=== PATIENT | female | born 1975 | race Caucasian/White ===

== ENCOUNTER 2017-01-13 01:47 | Inpatient (IN) | payer MEDICAID, OTHER ==
[~2017-01-13] VITALS: Ht 177.8 cm; Wt 101.0 kg
[2017-01-13] VITALS (10 sets, daily range): BP systolic 105–148; BP diastolic 61–97; PULSE 68–98; RESP 18–24; TEMP 97.7–98.4; O2SAT 94–98
[~2017-01-13 01:47] MED LIST: ALBU6.7H INH; CIPR500T4 PO; HYDR-3533 PO; IBUP800T23 PO; PROM25SU8 PO
[2017-01-13] MEDS ORDERED: MORP1TAB25 PO (01:58)
[2017-01-13] MEDS ORDERED: MORPHINE SULFATE 4 MG/ML INJ IV ONE (02:00)
[2017-01-13] MEDS ORDERED: ONDANSETRON HCL 4 MG/2 ML VIAL IVP ONE (02:00)
[2017-01-13] MEDS ORDERED: LORazepam 2 MG/ML VIAL IV PUSH ONE (02:15)
[2017-01-13 02:23] LABS: AUTOMATED NEUTROPHIL # 12.7 TH/MM3 (1.8-7.7); BASOPHIL # 0.1 TH/MM3 (0-0.2); BASOPHIL % 0.5 % (0.0-2.0); EOSINOPHIL # 0.2 TH/MM3 (0-0.4); EOSINOPHIL % 1.3 % (0.0-4.0); HEMATOCRIT 40.1 % (35.0-46.0); HEMO FLAGS DIFF FINAL; LYMPH % 24.5 % (9.0-44.0); LYMPHOCYTE # 4.4 TH/MM3 (1.0-4.8); MEAN CELL VOLUME 82.2 FL (80.0-100.0); MEAN CORPUSCULAR HEMOGLOBIN 26.9 PG (27.0-34.0); MEAN CORPUSCULAR HGB CONC 32.7 % (32.0-36.0); NEUT % 70.7 % (16.0-70.0); PLATELET COUNT 214 TH/MM3 (150-450); RED BLOOD COUNT 4.88 MIL/MM3 (4.00-5.30); RED CELL DISTRIBUTION WIDTH 13.5 % (11.6-17.2); WHITE BLOOD COUNT 17.9 TH/MM3 (4.0-11.0)
[2017-01-13 02:35] LABS: APTT (PATIENT) 23.6 SEC (24.3-30.1); PROTHROMBIN TIME - PATIENT 10.7 SEC (9.8-11.6)
[2017-01-13 02:38] LABS: I-STAT SODIUM 141 MMOL/L (138-146)
[2017-01-13] MEDS ORDERED: IOHEXOL 350 MG/ML 10 ML VIAL (for RAD DIAG) IV ONE (02:59)
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
[2017-01-13] MEDS ORDERED: SODIUM CHLOR 0.9% 1000 ML INJ 1,000 ML IV SCH (04:10)
[2017-01-13] MEDS ORDERED: MORPHINE SULFATE 4 MG/ML INJ IV PRN (04:15)
[2017-01-13] MEDS ORDERED: ENALAPRILAT 1.25 MG/ML VIAL IV PRN (04:15)
[2017-01-13] MEDS ORDERED: ACETAMINOPHEN/HYDROcodone 325 MG/5 MG TAB PO PRN ×2 (04:15)
[2017-01-13] MEDS ORDERED: SODIUM CHLORIDE 0.9% FLUSH 10 ML FLUSH IV FLUSH PRN (04:15)
[2017-01-13] MEDS ORDERED: MAGNESIUM HYDROXIDE SUSP 30 ML CUP PO PRN (04:15)
[2017-01-13] MEDS ORDERED: ONDANSETRON HCL 4 MG/2 ML VIAL IV PRN (04:15)
[2017-01-13] MEDS: HYDROmorphone HCL PF 1 MG/ML VIAL IV PUSH PRN ×5 (05:03→20:38)
[2017-01-13] MEDS ORDERED: PANTOPRAZOLE SODIUM 40 MG VIAL IVP SCH (06:00)
[2017-01-13] MEDS: CYCLOBENZAPRINE HCL 10 MG TAB PO SCH ×3 (06:01→20:38)
[2017-01-13] MEDS: POLYETHYLENE GLYCOL 17 GM PKG PO SCH (08:18)
[2017-01-13] MEDS ORDERED: ACETAMINOPHEN 1000 MG/100 ML VIAL IV ONE (09:00)
[2017-01-13] MEDS ORDERED: DOCUSATE SODIUM 100 MG CAP PO SCH (09:00)
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
[2017-01-13 10:37] LABS: BLOOD, URINE TRACE (NEG); GLUCOSE,URINE NEG (NEG); KETONE, URINE NEG (NEG); NITRITE,URINE NEG (NEG); SQUAMOUS EPITHELIAL CELL URINE <1 /hpf (0-5); URINE COLOR YELLOW (YELLW/STRAW)
[2017-01-13 10:41] LABS: COMMENT (UR) CULT NOT INDICATED; CULTURE IF INDICATED CULT NOT INDICATED
[2017-01-13 10:50] LABS: AMPHETAMINE, URINE NEG (NEG); BARBITURATES, URINE NEG (NEG); COCAINE, URINE NEG (NEG)
[2017-01-13] MEDS ORDERED: oxyCODONE/ACETAMINOPHEN 5 MG/325 MG TAB PO PRN (11:15)
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
--- NOTE | 2017-01-13 14:33 | EC ---
Study Study Date:01/13/2017 STUDY CONCLUSIONS SUMMARY LEFT VENTRICLE: The cavity size was normal. Wall thickness was normal. Systolic function was vigorous. The estimated ejection fraction was in the range of 65% to 70%. Wall motion was normal; there were no regional wall motion abnormalities. If LV function is below 40, please consider prescribing an ACEI or ARB or document rationale for non-use. PROCEDURE DATA STUDY STATUS: Elective. Procedure: Transthoracic echocardiography. Image quality was good. Scanning was performed from the parasternal, apical, and subcostal acoustic windows. Study completion: The patient tolerated the procedure well. Transthoracic echocardiography. M-mode, complete 2D, complete spectral Doppler, and color Doppler. Patient status: Inpatient. CARDIAC ANATOMY LEFT VENTRICLE: The cavity size was normal. Wall thickness was normal. Systolic function was vigorous. The estimated ejection fraction was in the range of 65% to 70%. Wall motion was normal; there were no regional wall motion abnormalities. AORTIC VALVE: Trileaflet; normal thickness leaflets. Doppler: Transvalvular velocity was within the normal range. There was no stenosis. No regurgitation. AORTA: Aortic root: The aortic root was normal in size. MITRAL VALVE: Structurally normal valve. Doppler: Transvalvular velocity was within the normal range. There was no evidence for stenosis. Trace regurgitation. Peak gradient: 2mm Hg (D). LEFT ATRIUM: The atrium was normal in size. RIGHT VENTRICLE: The cavity size was normal. Wall thickness was normal. PULMONIC VALVE: Doppler: Transvalvular velocity was within the normal range. There was no evidence for stenosis. No regurgitation. TRICUSPID VALVE: Structurally normal valve. Doppler: Transvalvular velocity was within the normal range. Trace regurgitation. PULMONARY ARTERY: The main pulmonary artery was normal-sized. Systolic pressure was within the normal range. RIGHT ATRIUM: The atrium was normal in size. PERICARDIUM: There was no pericardial effusion. SYSTEMIC VEINS: Inferior vena cava: The vessel was normal in size. BASIC MEASUREMENTS ADULT NORMAL Left ventricle LV internal dimension, ED, chordal level, 44 mm 43-52 PLAX LV internal dimension, ES, chordal level, 30 mm 23-38 PLAX Fractional shortening, chordal level, PLAX 32 % >29 LV posterior wall thickness, ED 9.95 mm IVS/LVPW ratio, ED 1.23 <1.3 Ventricular septum Septal thickness, ED 12.2 mm Aortic valve Leaflet separation 21 mm 15-26 Right ventricle RV internal dimension, ED, PLAX 33.3 mm 19-38 BASIC MEASUREMENTS ADULT NORMAL Aortic valve Leaflet separation 21 mm 15-26 Aorta Root diameter, ED 29 mm 20-37 Left atrium Anterior-posterior dimension, ES 32 mm 19-40 LA/aortic root ratio 1.1 DOPPLER MEASUREMENTS ADULT NORMAL Mitral valve Peak E-wave velocity 74 cm/s Peak A-wave velocity 58.7 cm/s Peak gradient, D 2 mm Hg Peak E/A ratio 1.3 LEGEND: Mean values are shown as u=mean value. Asterisk (*) de paz values outside specified normal range. Prepared and signed by Aman Snyder [id number]
[2017-01-13] MEDS: oxyCODONE/ACETAMINOPHEN 5 MG/325 MG TAB PO PRN ×3 (15:03→23:48)
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
[2017-01-13] MEDS: DOCUSATE SODIUM 50 MG/SENNA 8.6 MG TAB PO SCH (19:35)
[2017-01-14] VITALS (7 sets, daily range): BP systolic 112–135; BP diastolic 72–92; PULSE 64–96; RESP 14–20; TEMP 97.9–98.3; O2SAT 93–97
[2017-01-14] MEDS: KETOROLAC TROMETHAMINE 30 MG/ML (IVP) VIAL IV PUSH PRN ×3 (00:04→12:55)
[2017-01-14] MEDS: HYDROmorphone HCL PF 1 MG/ML VIAL IV PUSH PRN ×7 (00:42→23:40)
[2017-01-14] MEDS: SODIUM CHLORIDE 0.9% FLUSH 10 ML FLUSH IVF PRN ×3 (00:42→06:18)
[2017-01-14] MEDS: oxyCODONE/ACETAMINOPHEN 5 MG/325 MG TAB PO PRN ×2 (03:56→08:29)
[2017-01-14] MEDS: CYCLOBENZAPRINE HCL 10 MG TAB PO SCH ×3 (05:11→20:54)
[2017-01-14] MEDS: DOCUSATE SODIUM 50 MG/SENNA 8.6 MG TAB PO SCH ×2 (08:26→19:32)
[2017-01-14] MEDS: FAMOTIDINE 20 MG TAB PO SCH ×2 (08:26→19:31)
[2017-01-14] MEDS: POLYETHYLENE GLYCOL 17 GM PKG PO SCH (08:26)
[2017-01-14] MEDS ORDERED: DIAZEPAM 5 MG TAB PO ONE (10:45)
[2017-01-14] MEDS ORDERED: RESP: ALBUTEROL 2.5 MG/IPRATROPIUM 0.5 MG NEB (PRN) NEB (11:15)
[2017-01-14] MEDS: ENOXAPARIN SODIUM 30 MG/0.3 ML SYRINGE SQ SCH ×2 (11:55→23:40)
--- NOTE | 2017-01-14 12:33 | RADRPT ---
EXAM DATE/TIME: 01/14/2017 11:06 [facility] COMPARISON: CHEST SINGLE AP, June 04, 2016, 23:49. INDICATIONS : Chest pain. MEDICAL HISTORY : Hypertension. SURGICAL HISTORY : Appendectomy. Cholecystectomy.Umbilical hernia repair.Hysterectomy ENCOUNTER: Initial ACUITY: 1 day PAIN SCORE: 8/10 LOCATION: Bilateral chest FINDINGS: Single AP view of the chest. Low lung volumes. Bilateral pulmonary vasculature indistinctness and haz y opacity suggesting mild pulmonary edema. Small bilateral pleural effusions. No evidence of pneumoth orax. Cardiac silhouette mildly prominent. CONCLUSION: Low lung volumes. Mild bilateral pulmonary opacity and pulmonary vasculature indistinctness indicatin g mild pulmonary edema. Small bilateral pleural effusions. Diomedes Acosta MD on January 14, 2017 at 12:28 Board Certified Radiologist. This report was verified electronically.
[2017-01-14 13:39] LABS: AUTOMATED NEUTROPHIL # 4.3 TH/MM3 (1.8-7.7); BASOPHIL % 0.3 % (0.0-2.0); EOSINOPHIL # 0.2 TH/MM3 (0-0.4); EOSINOPHIL % 2.6 % (0.0-4.0); HEMATOCRIT 34.1 % (35.0-46.0); HEMO FLAGS DIFF FINAL; LYMPH % 32.7 % (9.0-44.0); LYMPHOCYTE # 2.4 TH/MM3 (1.0-4.8); MEAN CELL VOLUME 81.3 FL (80.0-100.0); MEAN CORPUSCULAR HEMOGLOBIN 27.4 PG (27.0-34.0); MEAN CORPUSCULAR HGB CONC 33.7 % (32.0-36.0); NEUT % 58.4 % (16.0-70.0); PLATELET COUNT 144 TH/MM3 (150-450); RED CELL DISTRIBUTION WIDTH 13.5 % (11.6-17.2); WHITE BLOOD COUNT 7.3 TH/MM3 (4.0-11.0)
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
[2017-01-14 13:56] LABS: ALT (GPT) 92 U/L (10-53); ANION GAP 5 MEQ/L (5-15); AST (GOT) 64 U/L (15-37); BICARBONATE 28.9 MEQ/L (21.0-32.0); BLOOD UREA NITROGEN 8 MG/DL (7-18); CHLORIDE 105 MEQ/L (98-107); GLOMERULAR FILTRATION RATE 97 ML/MIN (>89); POTASSIUM 3.8 MEQ/L (3.5-5.1); SODIUM (NA) 139 MEQ/L (136-145)
[2017-01-14 13:58] LABS: ALKALINE PHOSPHATASE 77 U/L (45-117); TOTAL BILIRUBIN ADULT 0.5 MG/DL (0.2-1.0)
[2017-01-14] MEDS: RESP: ALBUTEROL 2.5 MG/IPRATROPIUM 0.5 MG NEB (SCH) NEB ×2 (14:00→19:38)
[2017-01-14] MEDS ORDERED: ACETAMINOPHEN 1000 MG/100 ML VIAL IV PRN (14:00)
[2017-01-14] MEDS: oxyCODONE HCL 10 MG CONTROLLED RELEASE TAB PO PRN ×3 (16:13→22:26)
[2017-01-14] MEDS: KETOROLAC TROMETHAMINE 30 MG/ML (IVP) VIAL IV PUSH SCH ×2 (17:41→23:40)
[2017-01-14] MEDS: DIAZEPAM 2 MG TAB PO SCH (17:41)
[2017-01-15] VITALS (7 sets, daily range): BP systolic 115–131; BP diastolic 59–86; PULSE 80–108; RESP 16–20; TEMP 97.6–98.3; O2SAT 93–99
[2017-01-15] MEDS: oxyCODONE HCL 10 MG CONTROLLED RELEASE TAB PO PRN ×3 (01:20→15:00)
[2017-01-15] MEDS: HYDROmorphone HCL PF 1 MG/ML VIAL IV PUSH PRN ×6 (02:30→21:31)
[2017-01-15] MEDS: DIAZEPAM 2 MG TAB PO SCH ×2 (02:30→10:45)
[2017-01-15] MEDS: KETOROLAC TROMETHAMINE 30 MG/ML (IVP) VIAL IV PUSH SCH ×2 (05:30→11:34)
[2017-01-15] MEDS: CYCLOBENZAPRINE HCL 10 MG TAB PO SCH (05:30)
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
[2017-01-15] MEDS: RESP: ALBUTEROL 2.5 MG/IPRATROPIUM 0.5 MG NEB (SCH) NEB (07:40)
[2017-01-15] MEDS: FAMOTIDINE 20 MG TAB PO SCH ×2 (09:07→19:18)
[2017-01-15] MEDS: DOCUSATE SODIUM 50 MG/SENNA 8.6 MG TAB PO SCH ×2 (09:07→19:18)
[2017-01-15] MEDS: POLYETHYLENE GLYCOL 17 GM PKG PO SCH (09:08)
[2017-01-15] MEDS: ENOXAPARIN SODIUM 30 MG/0.3 ML SYRINGE SQ SCH ×2 (11:35→23:45)
[2017-01-15] MEDS: IBUPROFEN 800 MG TAB PO SCH ×2 (13:24→21:31)
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
[2017-01-15] MEDS: LACTULOSE SYRUP 20 GM/30 ML CUP PO SCH (16:00)
[2017-01-15] MEDS: DIAZEPAM 5 MG TAB PO SCH (19:18)
[2017-01-15] MEDS ORDERED: HYDROmorphone HCL 2 MG TAB PO PRN (20:00)
[2017-01-15] MEDS: HYDROmorphone HCL 4 MG TAB PO PRN (23:45)
[2017-01-16] VITALS (7 sets, daily range): BP systolic 106–125; BP diastolic 55–79; PULSE 76–89; RESP 16–20; TEMP 97.1–98.3; O2SAT 96–98
[2017-01-16] MEDS: HYDROmorphone HCL PF 1 MG/ML VIAL IV PUSH PRN ×6 (01:53→22:30)
[2017-01-16] MEDS: DIAZEPAM 5 MG TAB PO SCH ×3 (03:47→20:28)
[2017-01-16] MEDS: HYDROmorphone HCL 4 MG TAB PO PRN ×5 (03:47→20:28)
[2017-01-16] MEDS: IBUPROFEN 800 MG TAB PO SCH ×3 (05:51→22:31)
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
[2017-01-16] MEDS: FAMOTIDINE 20 MG TAB PO SCH ×2 (08:21→20:28)
[2017-01-16] MEDS: LACTULOSE SYRUP 20 GM/30 ML CUP PO SCH (08:22)
[2017-01-16] MEDS: DOCUSATE SODIUM 50 MG/SENNA 8.6 MG TAB PO SCH ×2 (08:22→20:28)
[2017-01-16] MEDS: POLYETHYLENE GLYCOL 17 GM PKG PO SCH (08:26)
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
[2017-01-16] MEDS ORDERED: IOHEXOL 350 MG/ML 10 ML VIAL (for RAD DIAG) IV ONE (12:34)
--- NOTE | 2017-01-16 12:39 | RADRPT ---
EXAM DATE/TIME: 01/16/2017 12:20 [facility] COMPARISON: CHEST SINGLE AP, January 16, 2017, 5:55. CT ABDOMEN & PELVIS W CONTRAST, January 13, 2017, 2:42. INDICATIONS : Shortness of breath and chest pain. IV CONTRAST: 71 cc Omnipaque 350 (iohexol) IV RADIATION DOSE: 22.90 CTDIvol (mGy) MEDICAL HISTORY : Seizures. Hypertension. SURGICAL HISTORY : Appendectomy. Hysterectomy.Cholecystectomy.Hernia repair ENCOUNTER: Initial ACUITY: 3 days PAIN SCALE: 6/10 LOCATION: Bilateral chest TECHNIQUE: Volumetric scanning of the chest was performed using a pulmonary embolism protocol MIP images were re constructed. Using automated exposure control and adjustment of the mA and/or kV according to patien t size, radiation dose was kept as low as reasonably achievable to obtain optimal diagnostic quality images. FINDINGS: The examination is of good diagnostic quality. The thoracic aorta is intact. No pulmonary embolus is identified. No significant hilar or mediastinal adenopathy is seen. The exam demonstrates a small right-sided pneumothorax. There are small bilateral effusions and conso lidative changes within the lower lobes. There is visualization of the osseous structures. These demonstrate comminuted fractures of the right fourth, fifth and sixth lateral ribs. CONCLUSION: 1. No pulmonary embolus identified. 2. Small right-sided pneumothorax. 3. Bilateral effusions with consolidative changes in the lung bases. 4. Fracture of the right fourth, fifth and sixth lateral ribs. Emanuel Espinoza MD on January 16, 2017 at 12:34 Board Certified Radiologist. This report was verified electronically.
[2017-01-16] MEDS: ENOXAPARIN SODIUM 30 MG/0.3 ML SYRINGE SQ SCH (12:44)
[2017-01-17] VITALS (7 sets, daily range): BP systolic 106–125; BP diastolic 55–82; PULSE 75–99; RESP 16–20; TEMP 97.2–98.1; O2SAT 93–100
[2017-01-17] MEDS: FAMOTIDINE 20 MG TAB PO SCH ×3 (00:33→20:28)
[2017-01-17] MEDS: HYDROmorphone HCL 4 MG TAB PO PRN ×6 (00:33→20:28)
[2017-01-17] MEDS: ENOXAPARIN SODIUM 30 MG/0.3 ML SYRINGE SQ SCH ×3 (00:34→22:47)
[2017-01-17] MEDS: HYDROmorphone HCL PF 1 MG/ML VIAL IV PUSH PRN ×5 (02:40→22:46)
[2017-01-17] MEDS: DIAZEPAM 5 MG TAB PO SCH ×3 (04:33→20:28)
[2017-01-17] MEDS: IBUPROFEN 800 MG TAB PO SCH ×3 (05:41→21:11)
[2017-01-17] MEDS: POLYETHYLENE GLYCOL 17 GM PKG PO SCH (08:16)
[2017-01-17] MEDS: LACTULOSE SYRUP 20 GM/30 ML CUP PO SCH (08:16)
[2017-01-17] MEDS: DOCUSATE SODIUM 50 MG/SENNA 8.6 MG TAB PO SCH ×2 (08:16→20:28)
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
[2017-01-18] VITALS: BP 118/66; PULSE 89; RESP 18; TEMP 98.2; O2SAT 96
[2017-01-18] MEDS: HYDROmorphone HCL 4 MG TAB PO PRN ×4 (00:25→11:06)
[2017-01-18] MEDS: DIAZEPAM 5 MG TAB PO SCH (03:10)
[2017-01-18 04:00] VITALS: BP 123/69; PULSE 81; RESP 16; TEMP 98.3; O2SAT 94
[2017-01-18] MEDS: IBUPROFEN 800 MG TAB PO SCH (05:28)
--- NOTE | 2017-01-18 06:08 | RADRPT ---
EXAM DATE/TIME: 01/18/2017 05:11 [facility] COMPARISON: CHEST SINGLE AP, January 16, 2017, 5:55. INDICATIONS : Shortness of breath, possible pulmonary disease. MEDICAL HISTORY : Hypertension. SURGICAL HISTORY : Appendectomy. Cholecystectomy. Umbilical hernia repair. ENCOUNTER: Subsequent ACUITY: 1 week PAIN SCORE: 5/10 LOCATION: Bilateral chest FINDINGS: A single view of the chest demonstrates multiple right-sided rib fractures. Small left pleural effusi on. Better aerated chest on the previous study. No visible pneumothorax. The cardiomediastinal conto urs are unremarkable. CONCLUSION: Numerous right-sided rib fractures. No visible pneumothorax. Small left pleural effusion Chaim Kingston MD on January 18, 2017 at 6:06 Board Certified Radiologist. This report was verified electronically.
[2017-01-18 08:00] VITALS: BP 105/65; PULSE 75; PULSE 77; RESP 18; TEMP 97.8; O2SAT 95
[2017-01-18] MEDS ORDERED: IBUP800T23 PO (08:22)
[2017-01-18] MEDS: HYDROmorphone HCL PF 1 MG/ML VIAL IV PUSH PRN (09:28)
[2017-01-18] MEDS: FAMOTIDINE 20 MG TAB PO SCH (09:29)
[2017-01-18] MEDS: DOCUSATE SODIUM 50 MG/SENNA 8.6 MG TAB PO SCH (09:29)
[2017-01-18] MEDS: POLYETHYLENE GLYCOL 17 GM PKG PO SCH (09:31)
[2017-01-18] MEDS: LACTULOSE SYRUP 20 GM/30 ML CUP PO SCH (09:31)
[2017-01-18] MEDS ORDERED: DILA2TAB2 PO (09:46)
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
== END 2017-01-18 11:27 | disposition home or self-care (01) | DRG 200 ==
LOC: NEPC 01:47 → NEDA 03:57 → OBSVTOIN 04:12 → N04A 05:44
PROVIDERS: ADMIT Surgery; ATTEND Surgery
DX: S27.0XXA Traumatic pneumothorax, initial encounter (principal); S22.43XA Multiple fractures of ribs, bilateral, initial encounter for closed fracture; J90 Pleural effusion, not elsewhere classified; S20.212A Contusion of left front wall of thorax, initial encounter; V49.49XA Driver injured in collision with other motor vehicles in traffic accident, initial encounter; Y92.410 Unspecified street and highway as the place of occurrence of the external cause; G89.29 Other chronic pain; M54.5 Low back pain; Z79.891 Long term (current) use of opiate analgesic; I10 Essential (primary) hypertension; Z85.41 Personal history of malignant neoplasm of cervix uteri; Z92.21 Personal history of antineoplastic chemotherapy; F17.210 Nicotine dependence, cigarettes, uncomplicated
CPT/HCPCS: 70450; 71010; 71020; 71260; 71275; 72125; 74177; 76937; 80053; 80307; 81001; 82435; 82565; 82947; 84132; 84295; 84520; 85025; 85610; 85730; 86850; 86900; 86901; 93306; 94150; 94640; 94664; 96374; 96375; C9113; J0131; J1170; J1650; J1885; J2060; J2270; J2405; J7030; Q9967

== ENCOUNTER 2017-04-11 18:27 | Emergency (ER) | payer SELFPAY ==
[~2017-04-11] VITALS: Ht 177.8 cm; Wt 95.0 kg
[~2017-04-11 18:27] MED LIST changes: -ALBU6.7H INH; -CIPR500T4 PO; +DILA2TAB2 PO; -HYDR-3533 PO; +MORP1TAB25 PO; -PROM25SU8 PO
[2017-04-11 18:29] VITALS: BP 138/82; PULSE 88; RESP 16; TEMP 98.5; O2SAT 96
--- NOTE | 2017-04-11 18:41 | PD ---
Physical Exam Date Seen by Provider: Apr 11, 2017 Time Seen by Provider: 18:40 Narrative 41 yo female here for possible PVCs. History of this in the past. Bad pains when they come. Per patient it comes when her potassium is low. Vitals stable in triage. Awaiting bed placement Data Data Last Documented VS Vital Signs Date Time Temp Pulse Resp B/P (MAP) Pulse Ox O2 Delivery O2 Flow Rate FiO2 04/11/17 18:29 98.5 88 16 138/82 (100) 96 MDM Medical Record Reviewed: Yes Supervised Visit with BARRY: Chi Priest Apr 11, 2017 18:41
--- NOTE | 2017-04-12 17:49 | EKG ---
Date Performed: 04/11/2017 Time Performed: 18:52:52 PTAGE: 41 years EKG: Sinus rhythm NORMAL ECG Compared to prior tracing no significant change PREVIOUS TRACING : 12/28/2014 22.08 DOCTOR: David Jolley Interpretating Date/Time 04/12/2017 17:48:38
== END 2017-04-11 21:25 | disposition left against medical advice (07) ==
LOC: NED 18:27
DX: R52 Pain, unspecified (principal); Z53.21 Procedure and treatment not carried out due to patient leaving prior to being seen by health care provider
CPT/HCPCS: 93005; 99281

== ENCOUNTER 2017-05-01 22:30 | Emergency (ER) | payer SELFPAY ==
[2017-05-01 22:35] VITALS: BP 128/79; PULSE 102; RESP 20; TEMP 98.4; O2SAT 96
[2017-05-01 22:45] VITALS: BP_SYST 108; BP_SYST 119; BP_DIAS 75; BP_DIAS 78; PULSE 90; RESP 20; O2SAT 96
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
[2017-05-01] MEDS ORDERED: SODIUM CHLORIDE 0.9% FLUSH 10 ML FLUSH IVF PRN (23:00)
[2017-05-01] MEDS ORDERED: ASPIRIN 81 MG CHEW TAB PO ONE (23:00)
--- NOTE | 2017-05-01 23:13 | RADRPT ---
EXAM DATE/TIME: 05/01/2017 22:56 [facility] COMPARISON: CHEST SINGLE AP, January 18, 2017, 5:11. INDICATIONS : Chest palipitations on and off for 1 week. MEDICAL HISTORY : Seizures. SURGICAL HISTORY : Appendectomy. Hysterectomy. Cholecystectomy. Hernia repair ENCOUNTER: Initial ACUITY: 1 week PAIN SCORE: 4/10 LOCATION: Bilateral chest FINDINGS: A single view of the chest demonstrates the lungs to be symmetrically aerated without evidence of mas s, infiltrate or effusion. The cardiomediastinal contours are unremarkable. Right-sided rib fracture s. There is overlap. I cannot determine whether these are acute or chronic. CONCLUSION: 1. No acute cardiopulmonary disease. 2. Right sided rib fractures. Howard Ogden Jr., MD on May 01, 2017 at 23:10 Board Certified Radiologist. This report was verified electronically.
[2017-05-01 23:30] VITALS: BP 106/77; PULSE 86; RESP 18; O2SAT 96
[2017-05-01] MEDS ORDERED: MELO7.5T4 PO (23:37)
[2017-05-01] MEDS ORDERED: CYCL1TAB29 PO (23:38)
[2017-05-01 23:41] LABS: CHLORIDE 103 MEQ/L (98-107); POTASSIUM 3.5 MEQ/L (3.5-5.1); SODIUM (NA) 139 MEQ/L (136-145)
[2017-05-01 23:44] LABS: ANION GAP 8 MEQ/L (5-15)
[2017-05-01 23:45] LABS: BLOOD UREA NITROGEN 12 MG/DL (7-18); MAGNESIUM 1.9 MG/DL (1.5-2.5)
[2017-05-01 23:48] LABS: GLOMERULAR FILTRATION RATE 100 ML/MIN (>89)
[2017-05-01 23:54] LABS: CREATINE KINASE 58 U/L (26-192)
[2017-05-02] MEDS ORDERED: POTASSIUM CHLORIDE 20 MEQ CONTROLLED RELEASE TAB PO ONE (00:15)
[2017-05-02 00:30] VITALS: BP 113/78
--- NOTE | 2017-05-02 20:48 | EKG ---
Date Performed: 05/01/2017 Time Performed: 22:53:15 PTAGE: 41 years EKG: Sinus rhythm NORMAL ECG PREVIOUS TRACING : 04/11/2017 18.52 Compared to prior tracing no significant change DOCTOR: Rashard Trinidad Interpretating Date/Time 05/02/2017 20:44:26
== END 2017-05-02 00:30 | disposition home or self-care (01) ==
LOC: PHED 22:30
DX: R00.2 Palpitations (principal); S22.31XD Fracture of one rib, right side, subsequent encounter for fracture with routine healing; R19.7 Diarrhea, unspecified; I10 Essential (primary) hypertension; F17.210 Nicotine dependence, cigarettes, uncomplicated; X58.XXXD Exposure to other specified factors, subsequent encounter
CPT/HCPCS: 71010; 80048; 82550; 83735; 84484; 93005; 99285